=== PATIENT | female | born 1985 | race American Indian/Alaskan Native ===

== ENCOUNTER 2017-02-09 16:50 | Emergency (ER) | payer MEDICAID ==
[2017-02-09 17:14] VITALS: TEMP 99.3; O2SAT 99
[2017-02-09] MEDS ORDERED: Sodium Chloride 0.9% 1,000 ML IV STA (17:21)
[2017-02-09 17:47] LABS: ADD MANUAL DIFF? NO
[2017-02-09 17:53] LABS: PH,URINE 8.5 (4.7-8.0); URINE BILIRUBIN NEGATIVE (NEGATIVE); URINE BLOOD NEGATIVE (NEGATIVE); URINE GLUCOSE (UA) NEGATIVE (NEGATIVE); URINE KETONE NEGATIVE (NEGATIVE); URINE LEUKOCYTE ESTERASE NEGATIVE Leu/uL (NEGATIVE); URINE PROTEIN NEGATIVE mg/dL (<30 mg/dL)
[2017-02-09 17:55] LABS: BASO # 0.03 K/mm3 (0.0-2.0); BASO % 0.3 % (0.0-3.0); EOS % 0.4 % (1.5-5.0); GRAN # 6.35 (1.4-6.5); GRAN % 70.3 % (50.0-68.0); HEMATOCRIT 32.3 % (36.0-48.0); LYMPH % 21.9 % (22.0-35.0); MEAN CELL VOLUME 74.3 fL (80.0-105.0); MEAN CORPUSCULAR HEMOGLOBIN 24.6 pg (25.0-35.0); MEAN CORPUSCULAR HGB CONC 33.1 g/dl (31.0-37.0); MEAN PLATELET VOLUME 10.6 fl (7.0-11.0); MONO # 0.6 (0.1-0.6); MONO % 7.1 % (1.0-6.0); PLATELET COUNT 222 10^3/uL (120.0-450.0); RED CELL DISTRIBUTION WIDTH 19.8 % (11.5-14.5)
[2017-02-09 18:07] LABS: ALKALINE PHOSPHATASE 43 U/L (38-133); ALT/SGPT 25 U/L (7-56); AST/SGOT 28 U/L (15-39); BILIRUBIN,TOTAL 0.6 mg/dL (0.2-1.3); BLOOD UREA NITROGEN 9 mg/dL (7-21); CALCIUM 9.8 mg/dL (8.4-10.5); CARBON DIOXIDE 29 mmol/L (21-33); CHLORIDE 97 mmol/L (98-107); GFR AFRICAN-AMERICAN > 60; GLUCOSE,RANDOM 76 mg/dL (70-110); LIPASE 278 U/L (23-300); POTASSIUM 3.7 mmol/L (3.6-5.0); SODIUM 136 mmol/L (132-148); TOTAL PROTEIN 8.8 g/dL (5.8-8.3)
[2017-02-09 18:09] LABS: URINE APPEARANCE CLEAR (CLEAR); URINE COLOR YELLOW (YELLOW)
--- NOTE | 2017-02-09 18:59 | ED PDOC ---
Arrival/HPI - General Historian: Patient - History of Present Illness Time/Duration: Other (2 days) Symptom Onset: Sudden Symptom Course: Unchanged Activities at Onset: Rest Context: Home - General Chief Complaint: Abdominal Pain Time Seen by Provider: 02/09/17 16:52 - History of Present Illness Narrative History of Present Illness (Text): 02/09/17 18:59 Josie Rojas, a 31 year old female, presents to the emergency department complaining of right lower quadrant abdominal pain for the past two days. Patient also reports nausea and vomiting. Patient notes she took a test a week ago, which was positive. Patient is and LMP was December 18. Patient has a history of ectopic on right side in 2012. Patient denies fever or any other complaints at this time. (Gerald Márquez DO) Modifying Factors (Text): none (Gerald Márquez DO) Associated Symptoms (Text): nausea and vomiting (Gerald Márquez DO) Past Medical History - Provider Review Nursing Documentation Reviewed: Yes - Infectious Disease Hx of Infectious Diseases: None - Genitourinary/Gynecological Other/Comment: ectopic 2013 - Psychiatric Hx Substance Use: No - Surgical History Hx Dilation and Curettage: Yes (2012) Other/Comment: back sx - Anesthesia Hx Anesthesia: Yes Hx Anesthesia Reactions: No Hx Malignant Hyperthermia: No Family/Social History - Physician Review Nursing Documentation Reviewed: Yes Family/Social History: No Known Family HX Smoking Status: Former Smoker Hx Alcohol Use: No Hx Substance Use: No Allergies/Home Meds Allergies/Adverse Reactions: Allergies No Known Allergies Allergy (Verified 02/09/17 17:14) Home Medications: Home Meds Medication Instructions Recorded Confirmed No Known Home Med 02/09/17 02/09/17 Review of Systems - Physician Review All systems were reviewed & negative as marked: Yes - Review of Systems Constitutional: absent: Fevers Gastrointestinal: Abdominal Pain (RLQ), Nausea, Vomiting Physical Exam Vital Signs Reviewed: Yes Temperature: Afebrile Blood Pressure: Normal Pulse: Regular Respiratory Rate: Normal Appearance: Positive for: Well-Appearing, Non-Toxic, Comfortable Pain Distress: None Mental Status: Positive for: Alert and Oriented X 3 - Systems Exam Head: Present: Atraumatic, Normocephalic Pupils: Present: PERRL Extroacular Muscles: Present: EOMI Conjunctiva: Present: Normal Mouth: Present: Moist Mucous Membranes Neck: Present: Normal Range of Motion Respiratory/Chest: Present: Clear to Auscultation, Good Air Exchange. No: Respiratory Distress, Accessory Muscle Use Cardiovascular: Present: Regular Rate and Rhythm, Normal S1, S2. No: Murmurs Abdomen: Present: Normal Bowel Sounds. No: Tenderness, Distention, Peritoneal Signs Genitourinary/Pelvic Exam: Present: Other (deferred) Back: Present: Normal Inspection Upper Extremity: Present: Normal Inspection. No: Cyanosis, Edema Lower Extremity: Present: Normal Inspection. No: Edema Neurological: Present: GCS=15, CN II-XII Intact, Speech Normal Skin: Present: Warm, Dry, Normal Color. No: Rashes Psychiatric: Present: Alert, Oriented x 3, Normal Insight, Normal Concentration Vital Signs Temp Pulse Resp BP Pulse Ox 02/09/17 22:30 62 16 112/80 99 02/09/17 17:07 99.3 F 71 19 113/75 99 Medical Decision Making - Lab Interpretations I have reviewed the lab results: Yes ED Course and Treatment: 02/09/17 18:57 Impression: A 31 year old female with right lower quadrant abdominal pain. Differential Diagnosis include but are not limited to: Plan: -- US transvaginal -- labs -- Urinalysis -- IV fluids -- POC urine preg test -- Reassess and disposition Progress Notes: US transvaginal: 02/09/17 19:[address] Gordon who will follow up US transvaginal. (Gerald Márquez DO) - Lab Interpretations Lab Results: 02/09/17 17:38 02/09/17 17:38 Lab Results 02/09/17 17:38: Beta HCG, Quant [id number] H 02/09/17 17:38: Sodium 136, Potassium 3.7, Chloride 97 L, Carbon Dioxide 29, Anion Gap 14, BUN 9, Creatinine 0.6, Est GFR ( Amer) > 60, Est GFR (Non- Af Amer) > 60, Random Glucose 76, Calcium 9.8, Total Bilirubin 0.6, AST 28, ALT 25, Alkaline Phosphatase 43, Total Protein 8.8 H, Albumin 4.4, Globulin 4.4, Albumin/Globulin Ratio 1.0 L, Lipase 278 02/09/17 17:38: Urine Color Yellow, Urine Appearance Clear, Urine pH 8.5, Ur Specific [place] 1.015, Urine Protein Negative, Urine Glucose (UA) Negative, Urine Ketones Negative, Urine Blood Negative, Urine Nitrate Negative, Urine Bilirubin Negative, Urine Urobilinogen 1.0 H, Ur Leukocyte Esterase Negative 02/09/17 17:38: WBC 9.0, RBC 4.35, Hgb 10.7 L, Hct 32.3 L, MCV 74.3 L, MCH 24.6 L, MCHC 33.1, RDW 19.8 H, Plt Count 222, MPV 10.6, Gran % 70.3 H, Lymph % (Auto ) 21.9 L, [place] % (Auto) 7.1 H, Eos % (Auto) 0.4 L, Baso % (Auto) 0.3, Gran # 6.35, Lymph # 2.0, [place] # 0.6, Eos # 0.0, Baso # 0.03 - RAD Interpretation Radiology Orders: 02/09/17 17:47 OB TRANSVAGINAL [US] Stat - Medication Orders Current Medication Orders: Discontinued Medications Sodium Chloride (Sodium Chloride 0.9%) 1,000 mls @ 1,000 mls/hr IV .Q1H STA Stop: 02/09/17 18:20 Last Admin: 02/09/17 17:45 Dose: 1,000 mls/hr - Scribe Statement Giulia Paez All medical record entries made by the Scribe were at my direction and personally dictated by me. I have reviewed the chart and agree that the record accurately reflects my personal performance of the history, physical exam, medical decision making, and the department course for this patient. I have also personally directed, reviewed, and agree with the discharge instructions and disposition. (Gerald Márquez DO) Disposition/Present on Arrival - Present on Arrival Any Indicators Present on Arrival: No History of DVT/PE: No History of Uncontrolled Diabetes: No Urinary Catheter: No History of Decub. Ulcer: No History Surgical Site Infection Following: None - Disposition Have Diagnosis and Disposition been Completed?: Yes Disposition Time: 20:00 - Disposition Diagnosis: First trimester , Abdominal pain Disposition: HOME/ ROUTINE Condition: STABLE Discharge Instructions (ExitCare): (ED), Abdominal Pain in (ED) Additional Instructions: Rest/no strenuous physical activity/Follow up with the tool marker doctor this week/ Any recurrent persistent symptoms to return to the emergency room. Referrals: Lindsay Tolentino MD [Staff Provider] - Follow up with primary
--- NOTE | 2017-02-09 20:52 | US ---
EXAM: US First Trimester, Transabdominal CLINICAL HISTORY: 31 years old, female; Pain; complicated by abdominal or pelvic pain; Right lower quadrant; First trimester; Gestational age or lmp: [id number]; ; Additional info: Rlq pain h/o ectopic TECHNIQUE: Real-time transabdominal obstetrical ultrasound of the maternal pelvis and a first trimester with image documentation. COMPARISON: No relevant prior studies available. FINDINGS: Gestation: Single live intrauterine gestation. heart rate of 135 beats per minute. [place]-rump length of 1.22 cm, correlating with gestational age of 7 weeks 3 days. Uterus/cervix: No subchorionic hemorrhage. No cervical dilatation or effacement. Ovaries: Normal ovaries. No adnexal masses. Free fluid: No significant free fluid. IMPRESSION: 1. Single live intrauterine gestation. 2. Incidental/non-acute findings are described above. EXAM: US , Transvaginal CLINICAL HISTORY: 31 years old, female; Pain; complicated by abdominal or pelvic pain; Right lower quadrant; First trimester; Gestational age or lmp: [id number]; ; Additional info: Rlq pain h/o ectopic TECHNIQUE: Real-time transvaginal obstetrical ultrasound of the maternal pelvis and a first trimester with image documentation. Transvaginal imaging was used for better evaluation of the fetus and adnexa. COMPARISON: No relevant prior studies available. FINDINGS: Gestation: Single live intrauterine gestation. heart rate of 135 beats per minute. [place]-rump length of 1.22 cm, correlating with gestational age of 7 weeks 3 days. Uterus/cervix: No subchorionic hemorrhage. No cervical dilatation or effacement. Ovaries: Normal ovaries. No adnexal masses. Free fluid: No significant free fluid.
--- NOTE | 2017-02-09 21:18 | ED PDOC ---
Physical Exam Vital Signs Reviewed: Yes Vital Signs Temp Pulse Resp BP Pulse Ox 02/09/17 17:07 99.3 F 71 19 113/75 99 Temperature: Afebrile Blood Pressure: Normal Pulse: Regular Respiratory Rate: Normal Appearance: Positive for: Well-Appearing, Non-Toxic, Comfortable Pain Distress: None Mental Status: Positive for: Alert and Oriented X 3 Medical Decision Making ED Course and Treatment: 02/09/17 19:11 Case endorsed to me by Dr. Márquez, pending transvaginal US, re-evaluation, and final disposition. Pt, P:2 A:1, presented with abdominal discomfort, nausea and vomiting. Pt recently took a test which was positive. US First Trimester, Transabdominal IMPRESSION: 1. Single live intrauterine gestation. 2. Incidental/non-acute findings are described above. EXAM: US , Transvaginal IMPRESSION: 1. Single live intrauterine gestation. 2. Incidental/non-acute findings are described above. Dictated and Authenticated by: Kamar Laams MD 02/09/2017 8:52 PM Eastern Time ([place] & [place]) 02/09/17 21:30 Pt. reevaluated with no complaints of any abdominal pain.States she feels fine.Aware of normal U/S results.Strongly advised follow up [facility] care this week.If any recurrent persistent symptoms to return to the ER. - Lab Interpretations Lab Results: 02/09/17 17:38 02/09/17 17:38 Lab Results 02/09/17 17:38: Beta HCG, Quant [id number] H 02/09/17 17:38: Sodium 136, Potassium 3.7, Chloride 97 L, Carbon Dioxide 29, Anion Gap 14, BUN 9, Creatinine 0.6, Est GFR ( Amer) > 60, Est GFR (Non- Af Amer) > 60, Random Glucose 76, Calcium 9.8, Total Bilirubin 0.6, AST 28, ALT 25, Alkaline Phosphatase 43, Total Protein 8.8 H, Albumin 4.4, Globulin 4.4, Albumin/Globulin Ratio 1.0 L, Lipase 278 02/09/17 17:38: Urine Color Yellow, Urine Appearance Clear, Urine pH 8.5, Ur Specific [place] 1.015, Urine Protein Negative, Urine Glucose (UA) Negative, Urine Ketones Negative, Urine Blood Negative, Urine Nitrate Negative, Urine Bilirubin Negative, Urine Urobilinogen 1.0 H, Ur Leukocyte Esterase Negative 02/09/17 17:38: WBC 9.0, RBC 4.35, Hgb 10.7 L, Hct 32.3 L, MCV 74.3 L, MCH 24.6 L, MCHC 33.1, RDW 19.8 H, Plt Count 222, MPV 10.6, Gran % 70.3 H, Lymph % (Auto ) 21.9 L, [place] % (Auto) 7.1 H, Eos % (Auto) 0.4 L, Baso % (Auto) 0.3, Gran # 6.35, Lymph # 2.0, [place] # 0.6, Eos # 0.0, Baso # 0.03 - RAD Interpretation Radiology Orders: 02/09/17 17:47 OB TRANSVAGINAL [US] Stat - Medication Orders Current Medication Orders: Discontinued Medications Sodium Chloride (Sodium Chloride 0.9%) 1,000 mls @ 1,000 mls/hr IV .Q1H STA Stop: 02/09/17 18:20 Last Admin: 02/09/17 17:45 Dose: 1,000 mls/hr - Scribe Statement The provider has reviewed the documentation as recorded by the Scribe Giulia Paez All medical record entries made by the Melyibe were at my direction and personally dictated by me. I have reviewed the chart and agree that the record accurately reflects my personal performance of the history, physical exam, medical decision making, and the department course for this patient. I have also personally directed, reviewed, and agree with the discharge instructions and disposition. Disposition/Present on Arrival - Present on Arrival Any Indicators Present on Arrival: No History of DVT/PE: No History of Uncontrolled Diabetes: No Urinary Catheter: No History of Decub. Ulcer: No History Surgical Site Infection Following: None - Disposition Have Diagnosis and Disposition been Completed?: Yes Diagnosis: First trimester , Abdominal pain Disposition: HOME/ ROUTINE Disposition Time: 21:33 Patient Plan: Discharge Condition: STABLE Discharge Instructions (ExitCare): (ED), Abdominal Pain in (ED) Additional Instructions: Rest/no strenuous physical activity/Follow up with the regional merchandising manager doctor this week/ Any recurrent persistent symptoms to return to the emergency room. Referrals: Lindsay Tolentino MD [Staff Provider] - Follow up with primary
[2017-02-09 22:32] VITALS: BP 112/80; PULSE 62; RESP 16
== END 2017-02-09 22:32 | disposition home or self-care (01) ==
LOC: ED 16:50 → MERGE 16:50 → ED 22:32
DX: O26.91 Pregnancy related conditions, unspecified, first trimester (principal); Z3A.01 Less than 8 weeks gestation of pregnancy; R10.9 Unspecified abdominal pain
CPT/HCPCS: 76817; 80053; 81003; 83690; 84702; 85025; 87086; 99284; J7040